=== PATIENT | male | born 1990 | race Caucasian/White ===

== ENCOUNTER 2018-10-31 22:02 | Emergency (ER) | payer BC, MEDICAID ==
[~2018-10-31] VITALS: Ht 182.9 cm; Wt 80.2 kg
[2018-10-31 22:07] VITALS: Ht 182.9 cm; Wt 80.2 kg
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
[2018-11-01] MEDS ORDERED: HYDROCODONE/APAP (5/325) TAB PO ONE
[2018-11-01] MEDS ORDERED: ACET500C5 PO (01:56)
[2018-11-01] MEDS ORDERED: CYCL10TA7 PO (01:56)
[2018-11-01 02:33] VITALS: BP 108/55; PULSE 53; RESP 18
== END 2018-11-01 02:34 | disposition home or self-care (01) ==
LOC: FTE 22:02
DX: S06.0X0A Concussion without loss of consciousness, initial encounter (principal); S10.93XA Contusion of unspecified part of neck, initial encounter; S20.219A Contusion of unspecified front wall of thorax, initial encounter; V43.52XA Car driver injured in collision with other type car in traffic accident, initial encounter
CPT/HCPCS: 70450; 71046; 72125; 99284; Z7610